=== PATIENT | male | born 1985 | race African-American/Black ===

== ENCOUNTER 2017-03-04 20:53 | Emergency (ER) | payer BC ==
[~2017-03-04] VITALS: Ht 190.5 cm; Wt 71.4 kg
[~2017-03-04 20:53] MED LIST: MEN'S MULTI-VI1 EACH PO; PAPAYA ENZYME1 EAC2 PO; ZANTAC150 MG PO
[2017-03-04 21:47] LABS: ADD MIUA? NO; BILIRUBIN NEGATIVE; BLOOD NEGATIVE; COLOR YELLOW ((YELLOW)); GLUCOSE (STRIP) NEGATIVE; KETONES 5; LEUKOCYTES NEGATIVE; NITRITE NEGATIVE; PROTEIN (STRIP) NEGATIVE; UCUL ADDED? NO; UROBILINOGEN 0.2 MG/DL (0.2-1.0)
[2017-03-04 21:55] LABS: HEMATOCRIT 36.4 % (38.0-50.0); MCH 30.9 PG (29.0-34.0); MCHC 35.4 G/DL (30.0-36.0); MCV 87.3 FL (86-99); MEAN PLAT.VOLUME 10.7 uM^3 (9.0-12.4); PLATELET COUNT 170 K/uL (156-360); RBC DIS.WIDTH-CV 11.9 % (11.8-14.6); RBC DIS.WIDTH-SD 38.4 % (39-53); RED BLOOD COUNT 4.17 M/uL (4.00-5.50); WHITE BLOOD COUNT 7.2 K/uL (4.1-10.2)
[2017-03-04 22:05] LABS: CHLORIDE 106 mEq/L (99-109); POTASSIUM 3.3 mEq/L (3.7-5.4); SODIUM 138 mEq/L (136-147)
[2017-03-04 22:08] LABS: GLUCOSE 89 mg/dL (70-99)
[2017-03-04 22:09] LABS: ANION GAP 9 MEQ/L (2-14); TOTAL BILIRUBIN 0.7 mg/dL (0.0-1.0)
[2017-03-04 22:11] LABS: ALKALINE PHOSPHATASE 37 IU/L (3-129); GFR ESTIMATE (CALCULATED) > 59 mL/min/
[2017-03-04 22:12] LABS: UREA NITROGEN (BUN) 12 mg/dL (9-23)
[2017-03-04] MEDS ORDERED: PERCOCET 5/31 TABLET PO (22:59)
[2017-03-04] MEDS ORDERED: CIPRO500 MG PO (22:59)
[2017-03-04] MEDS ORDERED: NAPROSYN500 MG PO (22:59)
[2017-03-04 23:29] VITALS: BP 106/74
[2017-03-07 13:40] LABS: CHLAMYDIA TRACHOMATIS NEGATIVE; NEISSERIA GONORRHOEAE NEGATIVE
== END 2017-03-04 23:50 | disposition home or self-care (01) ==
LOC: EME 20:53
PROVIDERS: Physician Assistant
DX: N41.9 Inflammatory disease of prostate, unspecified (principal); F17.200 Nicotine dependence, unspecified, uncomplicated
CPT/HCPCS: 74177; 80048; 80053; 81003; 85027; 87491; 87591; 99281; 99285; J0696; J1885; J7030

== ENCOUNTER 2017-09-11 15:32 | Emergency (ER) | payer BC ==
[~2017-09-11 15:32] MED LIST changes: +CIPRO500 MG PO; +NAPROSYN500 MG PO; +PERCOCET 5/31 TABLET PO
== END 2017-09-11 15:42 | disposition left against medical advice (07) ==
LOC: EME 15:32
DX: K08.89 Other specified disorders of teeth and supporting structures (principal); Z53.21 Procedure and treatment not carried out due to patient leaving prior to being seen by health care provider